=== PATIENT | female | born 1965 | race Caucasian/White ===

== ENCOUNTER 2021-01-01 09:44 | Day surgery (SDC) | payer BC ==
[~2021-01-01 09:44] MED LIST: Lactated Ringers 1,000 ML IV SCH; Sodium Chloride 0.9% 10 ML SDV IV PRN; Sodium Chloride 0.9% 10 ML Syringe FLUSH PRN; Sodium Chloride 0.9% 2.5 ML Syringe FLUSH PRN; ceFAZolin 2 GM in Premix Bag 1 BAG IV ONE
[2021-01-01] MEDS ORDERED: Propofol 200 MG/20 ML SDV ONE (09:46)
[2021-01-01] MEDS ORDERED: Midazolam 1 MG/ML 2 ML SDV ONE (10:13)
[2021-01-01] MEDS ORDERED: fentaNYL 250 MCG/5 ML SDV ONE (10:14)
[2021-01-01] MEDS ORDERED: Ondansetron 4 MG/2 ML SDV ONE (10:15)
[2021-01-01] MEDS ORDERED: Dexamethasone 4 MG/ML 5 ML MDV ONE (10:15)
[2021-01-01] MEDS ORDERED: Rocuronium Bromide 50 MG/5 ML Syringe ONE (10:16)
[2021-01-01] MEDS ORDERED: Glycopyrrolate 0.2 MG/ML SDV ONE (10:16)
[2021-01-01] MEDS ORDERED: Bupivacaine 0.5% 30 ML SDV ONE (10:22)
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
[2021-01-01] MEDS ORDERED: Sugammadex Sodium 200 MG/2 ML VIAL ONE (11:10)
[2021-01-01] MEDS ORDERED: Famotidine 20 MG/2 ML SDV ONE (11:11)
[2021-01-01] MEDS ORDERED: ePHEDrine 50 MG/ML SDV ONE (11:21)
[2021-01-01] MEDS ORDERED: Sodium Chloride 0.9% 20 ML ONE (11:21)
[2021-01-01] MEDS ORDERED: fentaNYL 100 MCG/2 ML SDV IVPUSH PRN (11:37)
[2021-01-01] MEDS ORDERED: Octyl 2-Cyanoacrylate 1 Tube ONE (11:57)
--- NOTE | 2021-01-01 12:23 | PCM.OPNOTE ---
- General Post-Op/Procedure Note Date of Surgery/Procedure: 01/01/21 Operative Procedure(s): Laparscopic cholecystectomy Findings: Adhesions of the gallbladder to surrounding omentum. No evidence of acute inflammation. Pre Op Diagnosis: Biliary dyskinesia Post-Op Diagnosis: same Anesthesia Technique: General ET Tube Primary Surgeon: Rupa Oliver Pathology: gallbladder Fluid Replacement, Intraop: 1,200 Output, Urine Amount: 50 EBL in mLs: 10 Condition: Good
--- NOTE | 2021-01-01 13:27 | PCM48HPAN ---
Post Anesthesia Note - EVALUATION WITHIN 48HRS OF ANESTHETIC Vital Signs in Normal Range: Yes Patient Participated in Evaluation: Yes Respiratory Function Stable: Yes Airway Patent: Yes Cardiovascular Function Stable: Yes Hydration Status Stable: Yes Pain Control Satisfactory: Yes Nausea and Vomiting Control Satisfactory: Yes Mental Status Recovered: Yes Vital Signs: Last Vital Signs Temp 97.5 F 01/01/21 12:17 Pulse 76 01/01/21 13:02 Resp 12 01/01/21 13:02 BP 120/72 01/01/21 13:02 Pulse Ox 96 01/01/21 13:02
--- NOTE | 2021-01-01 13:27 | PCM.POSTAN ---
POST ANESTHESIA ASSESSMENT - MENTAL STATUS Mental Status: Alert, Oriented - VITAL SIGNS Vital Signs: Last Vital Signs Temp 97.5 F 01/01/21 12:17 Pulse 76 01/01/21 13:02 Resp 12 01/01/21 13:02 BP 120/72 01/01/21 13:02 Pulse Ox 96 01/01/21 13:02 - RESPIRATORY Respiratory Status: Respiratory Rate WNL, Airway Patent, O2 Saturation Stable - CARDIOVASCULAR CV Status: Pulse Rate WNL, Blood Pressure Stable - GASTROINTESTINAL GI Status: No Symptoms - POST OP HYDRATION Hydration Status: Adequate & Stable
[2021-01-01] MEDS ORDERED: Acetaminophen/HYDROcodone 325-5 MG Tab PO PRN (14:00)
[2021-01-01 15:08] VITALS: BP 118/59; PULSE 71
--- NOTE | 2021-01-01 23:38 | OR ---
SURGEON: URPA VAZQUEZ MD DATE OF PROCEDURE: 01/01/2021 PREOPERATIVE DIAGNOSIS: Biliary dyskinesia. POSTOPERATIVE DIAGNOSIS: Biliary dyskinesia. PROCEDURE PERFORMED: Laparoscopic cholecystectomy. PRIMARY SURGEON: Rupa Vazquez MD THRILL PERFORMER: Dr. Malka Del Angel, family consumer science [employer] teacher. ANESTHESIA: General endotracheal anesthesia. FLUIDS: 1200 mL of crystalloid. ESTIMATED BLOOD LOSS: 10 mL. URINE OUTPUT: 50 mL. FINDINGS: Adhesions of the gallbladder to the surrounding omentum. No evidence of acute cholecystitis. COMPLICATIONS: None. INDICATIONS: The patient is a 55-year-old female who presented to my clinic with abdominal pain. A HIDA scan showed an ejection fraction of 28% and reproduced the patient's symptoms. The patient and I discussed the pathophysiology of biliary dyskinesia. I explained that the treatment for this is a cholecystectomy. I would attempt this laparoscopically, but convert to open should I be unable to perform it safely. I explained the procedure, expected perioperative course, and the risks including bleeding, infection, or damage to surrounding structures. She verbalized understanding and wishes to proceed. PROCEDURE IN DETAIL: The patient was brought into the OR and placed on the OR table in supine position. A time-out was completed, verifying the patient's name, age, date of , allergies, and procedure to be performed. General endotracheal anesthesia was induced. The left arm was tucked to the patient's side and a Samson catheter placed. The abdomen was prepped and draped in usual standard fashion. The patient had a small skin tag along the infraumbilical fold. I did consent the patient for removal of the skin tag as it gets caught in clothing. I elevated it with an Adson and sharply excised it at the level of the skin. Since this appeared to be a skin tag, it was not sent to Pathology. I anesthetized the infraumbilical fold with 0.5% Marcaine plain. An incision was made along the infraumbilical fold using an 11 blade. Cautery was used to dissect down to the level of subcutaneous fat. I then bluntly dissected down to the fascia. The fascia was elevated with Mamadou's and incised sharply with curved Fitzgerald scissors. Using blunt dissection with a hemostat, I was able to open up the peritoneum underlying this and gain entry into the abdomen. Using my finger, I then dilated up my opening. Stay sutures were placed on either side of the fascia using 0 Vicryl. A 12 mm Sabrina trocar was inserted in the abdomen and the abdomen was insufflated. A 5 mm 30-degree scope was inserted. I inspected the area underneath my initial trocar placement. No damage to surrounding structures was noted. The patient was placed into reverse Trendelenburg position and airplaned slightly to the left. 5 mm trocars were placed in the following locations under direct visualization; one in the epigastric area, one in the right flank, and one 2 fingerbreadths below the right subcostal margin in the midclavicular line. The dome of the gallbladder was grasped with an atraumatic grasper and elevated. The patient had adhesions from the top of the gallbladder all the way down to the infundibulum. The patient's gallbladder was adhered to the surrounding omentum. Using hook cautery, I was able to take down these adhesions and completely free the gallbladder up from the surrounding attachments. I then grasped the infundibulum. Using a combination of hook cautery and gentle blunt dissection, I cleared away all the attachments around the cystic duct and cystic artery. I identified the node of Calot. Once these structures were identified, I then began dissecting my proximal cystic plate. The cystic artery appeared to have 2 small branches that bifurcated just below the gallbladder. I dissected these out to ensure that it truly was a bifurcation and that there were no vessels traveling away from the gallbladder. I dissected usp up my cystic plate. Once my critical view was achieved, photograph was taken. I then triply clipped and ligated both my cystic duct and cystic artery. I then continued my dissection of the cystic plate using hook cautery. A small rent was made in the gallbladder during this dissection, and a few drops of bile were spilled in the abdomen. I was able to control this. Once the attachments were taken down, the gallbladder was placed in an Endo Catch bag. A photograph was taken of my operative field. It appeared to be hemostatic with no evidence of bile leakage. I irrigated the abdomen with 1 L of normal saline and suctioned this out. The 5 mm trocars were removed under direct visualization, the abdomen allowed to desufflate. The 12 mm Sabrina trocar and the Endo Catch bag were removed at the same time. The fascia at the infraumbilical port site was closed with interrupted 0 Vicryl sutures. The subcutaneous fat layer at the infraumbilical port site was closed with interrupted 3-0 Vicryl sutures. The skin was closed with a running 4-0 Monocryl stitch. My 5 mm trocar sites were closed with interrupted 4-0 Monocryl sutures. Dermabond and sterile dressings were applied. The patient tolerated the procedure well, was extubated and taken to PACU in stable condition. All counts were complete and correct at the end of the case. RENAE BACON /[id number]
== END 2021-01-01 15:00 | disposition home or self-care (01) ==
LOC: MW.SDS 09:44
PROVIDERS: ATTEND Surgery
DX: K81.1 Chronic cholecystitis (principal); K82.8 Other specified diseases of gallbladder; I10 Essential (primary) hypertension; G47.33 Obstructive sleep apnea (adult) (pediatric); Z01.812 Encounter for preprocedural laboratory examination; Z20.822 Contact with and (suspected) exposure to COVID-19; Z88.8 Allergy status to other drugs, medicaments and biological substances; Z91.012 Allergy to eggs; Z91.030 Bee allergy status; Z91.018 Allergy to other foods; Z79.899 Other long term (current) drug therapy; Z98.890 Other specified postprocedural states
CPT/HCPCS: 47562; 87635; 88304; A9270; J0690; J1100; J2250; J2405; J2704; J3010; J3490; J7120; 00790; U0002

== ENCOUNTER 2021-05-23 07:12 | Day surgery (SDC) | payer BC ==
[~2021-05-23 07:12] MED LIST changes: -Sodium Chloride 0.9% 10 ML SDV IV PRN; -Sodium Chloride 0.9% 10 ML Syringe FLUSH PRN; -Sodium Chloride 0.9% 2.5 ML Syringe FLUSH PRN; -ceFAZolin 2 GM in Premix Bag 1 BAG IV ONE
[2021-05-23] MEDS ORDERED: Sodium Chloride 0.9% 10 ML SDV IV PRN (07:57)
[2021-05-23] MEDS ORDERED: Sodium Chloride 0.9% 10 ML Syringe FLUSH PRN (07:57)
[2021-05-23] MEDS ORDERED: Sodium Chloride 0.9% 2.5 ML Syringe FLUSH PRN (07:57)
[2021-05-23] MEDS ORDERED: Propofol 200 MG/20 ML SDV ONE (09:14)
[2021-05-23] MEDS ORDERED: Lidocaine 2% 5 ML SDV ONE (09:14)
[2021-05-23] MEDS ORDERED: fentaNYL 100 MCG/2 ML SDV ONE (09:15)
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
--- NOTE | 2021-05-23 10:30 | PCM.POSTAN ---
POST ANESTHESIA ASSESSMENT - MENTAL STATUS Mental Status: Alert, Oriented - VITAL SIGNS Vital Signs: Last Vital Signs Temp 97.2 F 05/23/21 08:09 Pulse 71 05/23/21 08:09 Resp 16 05/23/21 08:09 BP 118/60 05/23/21 08:09 Pulse Ox 100 05/23/21 08:09 - RESPIRATORY Respiratory Status: Respiratory Rate WNL, Airway Patent, O2 Saturation Stable - CARDIOVASCULAR CV Status: Pulse Rate WNL, Blood Pressure Stable - GASTROINTESTINAL GI Status: No Symptoms - POST OP HYDRATION Hydration Status: Adequate & Stable
--- NOTE | 2021-05-23 10:31 | PCM48HPAN ---
Post Anesthesia Note - EVALUATION WITHIN 48HRS OF ANESTHETIC Vital Signs in Normal Range: Yes Patient Participated in Evaluation: Yes Respiratory Function Stable: Yes Airway Patent: Yes Cardiovascular Function Stable: Yes Hydration Status Stable: Yes Pain Control Satisfactory: Yes Nausea and Vomiting Control Satisfactory: Yes Mental Status Recovered: Yes Vital Signs: Last Vital Signs Temp 97.2 F 05/23/21 08:09 Pulse 71 05/23/21 08:09 Resp 16 05/23/21 08:09 BP 118/60 05/23/21 08:09 Pulse Ox 100 05/23/21 08:09
--- NOTE | 2021-05-23 10:36 | PCM.OPNOTE ---
- General Post-Op/Procedure Note Date of Surgery/Procedure: 05/23/21 Operative Procedure(s): EGD with biopsy Findings: Hyperplastic gastric polyps in fundus and body Pre Op Diagnosis: Upper abdominal pain Post-Op Diagnosis: Hyperplastic gastric polyps Anesthesia Technique: [facility] Primary Surgeon: Rupa Oliver Condition: Good
[2021-05-23 10:40] VITALS: PULSE 78
[2021-05-23 10:48] VITALS: BP 110/59
--- NOTE | 2021-05-23 11:16 | OR ---
SURGEON: RUPA OLIVER MD DATE OF PROCEDURE: 05/23/2021 PREOPERATIVE DIAGNOSIS: Upper abdominal pain. POSTOPERATIVE DIAGNOSIS: Hyperplastic gastric polyps. PROCEDURE PERFORMED: Diagnostic esophagogastroduodenoscopy with biopsies. PRIMARY SURGEON: Rupa Oliver MD ANESTHESIA: MAC. INSTRUMENT USED: Olympus endoscope. EXTENT OF EXAM: To the second portion of the duodenum. PREPARATION: Good. LIMITATIONS: None. INDICATIONS FOR EXAMINATION: The patient is a 56-year-old female who presented to clinic with ongoing issues of upper abdominal pain. As the part of a workup, a decision was made to proceed with a diagnostic EGD with biopsies. I explained the procedure, expected perioperative course, and the risks. She verbalized understanding and wishes to proceed. PROCEDURE IN DETAIL: The patient was brought into the endoscopy suite and placed in a beach chair position. A time-out was completed verifying the patient's name, age, date of , allergies, and procedure to be performed. A bite block was placed in the patient's mouth. Monitored anesthesia care was induced and continuous oxygen was provided via nasal cannula throughout the procedure. After adequate sedation was achieved, a well-lubricated endoscope was placed in the mouth and advanced under direct visualization to the second portion of duodenum. This appeared normal and a photograph was taken. The scope was then fully withdrawn while examining the color, texture, anatomy, and integrity of the mucosa of the upper GI tract. The duodenal mucosa appeared normal. A biopsy was taken in the duodenal bulb and sent to Pathology for histologic review. The scope was brought into the stomach and a photograph was taken of the pylorus and GE junction. In the retroflexed view, the patient was noted to have a few scattered small hyperplastic polyps in the fundus and upper body of the stomach. There was no evidence of gross inflammation or ulceration. Biopsies were taken of the gastric antrum, body, and fundus, and sent for histologic review and H pylori testing. I then took several of the gastric body polyps out and sent these to Pathology, labeled as gastric body polyps. I took several of the fundic polyps out as well. These were all less than 1 cm in size. The polyps in the fundus were labeled as gastric fundic polyps. The scope was then brought into the distal esophagus and a photograph was taken of a normal-appearing Z- line. A biopsy was taken 1 cm above this and sent to Pathology for histologic review. It was labeled as esophageal biopsy. The remainder of the esophagus was normal. The scope was removed and the procedure was terminated. The patient tolerated the procedure well and was transferred to the PACU in stable condition. ENDOSCOPIC DIAGNOSIS: Hyperplastic gastric polyps. RECOMMENDATIONS: Follow up in clinic in 2 weeks. RENAE BACON /[id number]
== END 2021-05-23 11:15 | disposition home or self-care (01) ==
LOC: MW.SDS 07:12
PROVIDERS: ATTEND Surgery
DX: K31.7 Polyp of stomach and duodenum (principal); K21.9 Gastro-esophageal reflux disease without esophagitis; K31.89 Other diseases of stomach and duodenum; I10 Essential (primary) hypertension; G47.33 Obstructive sleep apnea (adult) (pediatric); Z88.8 Allergy status to other drugs, medicaments and biological substances; Z91.030 Bee allergy status; Z91.012 Allergy to eggs; Z91.013 Allergy to seafood; Z79.899 Other long term (current) drug therapy; Z01.812 Encounter for preprocedural laboratory examination; Z20.822 Contact with and (suspected) exposure to COVID-19
CPT/HCPCS: 43239; 87635; 88305; 88342; J2704; J3010; J7120; 00731; U0002